=== PATIENT | male | born 1965 | race Two or more races ===

== ENCOUNTER 2024-10-16 13:30 | Emergency (ER) | payer MEDICAID, SELFPAY ==
[2024-10-16 13:31] VITALS: BMI 27.3
[2024-10-16 14:07] VITALS: BP 119/74; PULSE 115; RESP 24; TEMP 38.6; O2SAT 96
--- NOTE | 2024-10-16 15:22 | PD.EDURI ---
Upper Respiratory Inf. MAILE/DIPESH General Chief Complaint: Flu Like Symptoms Stated Complaint: FEVER/NAUSEA/NOT EATING X 1 WEEK Time Seen by Provider: 10/16/24 15:16 Arrival date/time: 10/16/24 13:30 Mode of arrival: ambulatory Limitations: no limitations TRAVISE / HPI Complaint: fever and cough Onset (ago): day(s) Duration: intermittent Severity: severe Severity scale (1-10): 4 Relieving factors: nothing Exacerbating factors: nothing Able to tolerate fluids by mouth: Yes Associated symptoms: denies other symptoms, fever, chills and headache Related Data Allergies Allergy/AdvReac Type Severity Reaction Status Date / Time No Known Allergies Allergy Verified 10/16/24 13:35 Review of Systems Constitutional Constitutional: Reports system reviewed and no additional complaints, except as documented Eyes Eyes: Reports system reviewed and no additional complaints, except as documented, Denies dry eyes, Denies exophthalmos and Reports floaters Cardiovascular Cardiovascular: Denies chest pain with activity and Denies claudication ED Exam General Limitations: Present no limitations General appearance: Present alert and in no apparent distress Head Head exam: Present atraumatic Eye Eye exam: Present normal appearance, PERRL and EOMI ENT ENT exam: Present normal exam, normal oropharynx and mucous membranes moist Neck Neck exam: Present normal inspection, full ROM and trachea midline Chest Chest inspection: Present normal inspection and symmetric chest wall rise Respiratory Respiratory exam: Present normal lung sounds bilaterally Cardiovascular Cardiovascular exam: Present regular rate, normal rhythm and normal heart sounds Abdominal Exam Abdominal exam: Present soft and normal bowel sounds Extremities Exam Extremities exam: Present normal inspection and full ROM Back Exam Back exam: Present normal inspection and full ROM Neurological Exam Neurological exam: Present alert, oriented X3 and CN II-XII intact Psychiatric Psychiatric exam: Present normal affect and normal mood Skin Skin exam: Present warm, dry, intact and normal color Course Course Course Narrative: CBC CMP flu and COVID swab Quality Measures none Orders NA Vital Signs Vital signs: Vital Signs Temperature 101.5 F H 10/16/24 14:07 Pulse Rate 115 H 10/16/24 14:07 Respiratory Rate 24 H 10/16/24 14:07 Blood Pressure 119/74 10/16/24 14:07 Pulse Oximetry (%) 96 10/16/24 14:07 Oxygen Delivery Method Room Air 10/16/24 14:07 Pulse ox on room air is 96% Upper Respiratory Infection Patient data External records reviewed:: Other (specify) (NA) Clinical information provided by:: none (NA) Social determinants that could affect healthcare access:: none (NA) Patient has the following chronic illnesses:: NA How is presenting disease/condition affected by chronic disease/condition?: no chronic disease Evaluation data The following diagnostics were reviewed and interpreted by me:: other (specify) (NA) Lab and/or radiology exams considered but not ordered:: NA Medications / Prescriptions Medications or Prescriptions considered but not ordered:: NA Consultations Consultation(s) initiated? (list below): No Diagnosis Upper Respiratory Differential Diagnosis: croup, otitis media, sinusitis, viral infection and bronchitis Discharge Plan Patient/Caregiver Discharge Instructions Print Language: [place]
[2024-10-16 17:19] LABS: Basophils # (Auto) 0.0 Thou/mm3 (0.0-0.2); Basophils % (Auto) 0 % (0-2.5); Eosinophils # (Auto) 0.0 Thou/mm3 (0.0-0.5); Eosinophils % (Auto) 0 % (0-10); Hematocrit 41.6 % (41.0-53.0); Hemoglobin 14.0 g/dL (13.5-16.0); Immature Granulocytes Auto 0.05 Thou/mm3 (0.00-0.00); Lymphocytes # (Auto) 3.0 Thou/mm3 (1.0-4.8); Lymphocytes % (Auto) 29 % (10-50); Mean Corpuscular HGB Conc 33.7 g/dl (31.0-37.0); Mean Corpuscular Hemoglobin 26.7 pg (25.0-35.0); Mean Corpuscular Volume 79 fL (80-100); Monocytes # (Auto) 0.8 Thou/mm3 (0.0-0.8); Monocytes % (Auto) 8 % (0-12); Neutrophils # (Auto) 6.6 Thou/mm3 (1.8-7.7); Neutrophils % (Auto) 62 % (37-80); Nucleated Red Blood Cell # 0.00 Thou/mm3 (0.00-0.00); Nucleated Red Blood Cell % 0 /100 WBC (0); Platelet Count 95 Thou/mm3 (140-440); RDW Standard Deviation 41.3 fL (35.1-43.9); Red Blood Count 5.25 Miln/mm3 (4.50-5.90); White Blood Count 10.5 Thou/mm3 (3.8-10.6)
[2024-10-16 17:40] LABS: INR 2.5 (0.9-1.3); Partial Thromboplastin Time 45.8 Seconds (22.0-36.0); Prothrombin Time 25.6 Seconds (9.0-12.2)
[2024-10-16 17:45] LABS: Alanine Aminotransferase 266 U/L (10-49); Albumin, Serum 3.9 gm/dL (3.5-5.0); Albumin/Globulin Ratio 1.1 (1.2-2.2); Alkaline Phosphatase 252 U/L (46-116); Anion Gap 10 (7-16); Aspartate Amino Transferase 187 U/L (0-34); BUN/Creatinine Ratio 7 Ratio (12-20); Bilirubin,Total 1.7 mg/dL (0.3-1.2); Blood Urea Nitrogen 8 mg/dL (9-23); Calcium 9.0 mg/dL (8.3-10.6); Calcium (Corrected) 9.1 mg/dL (8.5-10.1); Carbon Dioxide 25.9 mMol/L (20.0-31.0); Chloride 102 mMol/L (98-107); Creatinine (Component) 1.1 mg/dL (0.6-1.3); Estimated Creatinine Clearance 71.7 mL/min (>60); Globulin 3.4 gm/dL (2.3-3.5); Glucose 109 mg/dL (74-106); Osmolality,Calculated 274 (275-295); Potassium 4.6 mMol/L (3.4-5.1); Procalcitonin 0.99 ng/ml (0.0-0.49); Sodium 138 mMol/L (136-145); Total Protein 7.3 gm/dL (5.7-8.2); eGFR > 60 See Note
[2024-10-16 17:54] VITALS: TEMP 38.6
[2024-10-16] MEDS: ACETAMINOPHEN 500 MG TABLET 1000 MG PO (17:54)
[2024-10-16 18:13] LABS: Lactate (Lactic Acid) 2.9 mMol/L (0.4-2.0)
[2024-10-16 20:11] LABS: Reflex Lactate? Y
--- NOTE | 2024-10-16 20:42 | EDNOTE_ITS ---
Upper Respiratory Inf. RME/HPI General Chief Complaint: Flu Like Symptoms Stated Complaint: FEVER/NAUSEA/NOT EATING X 1 WEEK Time Seen by Provider: 10/16/24 15:16 Arrival date/time: 10/16/24 13:30 Mode of arrival: ambulatory RME / HPI RME / HPI Narrative: This section includes all my notes and documentations, including HPI, PE, and ED course. Gabriel Lockhart MD HPI: 59yo male with subjective fever, decreased appetite, headache, and fatigue for the last 8 days. Patient has not drank alcohol in 9 years. No abdominal pain, N/V/D, cough, UTI symptoms or any other associated symptoms. No other complaints reported. ROS: All negative except as documented in HPI. Physical Exam: General: Alert and oriented. No acute distress when remaining still. Eyes: Conjunctivae and lids clear. ENT: No nasal congestion. Neck: Supple. Heart: RRR. Lungs: No respiratory distress. Good air movement. No rhonchi, wheezing, rales. Abdomen: Soft and nontender. Normal bowel sounds. No distension. No rebound or guarding. Back: No CVA tenderness. Skin: Warm and dry. Neuro: Alert and oriented X 3. I reviewed all diagnostic test results. My review of the abdominal US report is cholelithiasis/cholecystitis. My review of the CT chest abdomen pelvis reports is cholelithiasis and hepatocellular disease. Blood tests remarkable for Lactic Acid 2.9, Total Bilirubin 1.7, AST 187, ALT 266, Alkaline Phosphatase 252, Procalcitonin 0.99. COVID/Influenza negative. At this point, diagnoses include cholcystitis, hepatitis, and fever. Treatment here included Tylenol and Augmentin and ibuprofen and Zofran. He felt better. Recommended MRCP tomorrow morning. Patient declined. Discussed potential risks, including worsening cholecystitis and even . Patient understood but we couldn't change his mind. He asked if he could return here tomorrow morning. Told him that it is his decision. Based on my best medical judgment, made decision no further evaluation or treatment indicated at this time. Patient understands and agrees to the discharge instructions customized and printed, see below. Discharge Instructions from Dr. Lockhart printed for you: 1. After evaluation, you have severe conditions. Including gallbladder with stones and infection and liver damage and fever. 2. Recommended staying here for MRCP tomorrow. But you declined and requested going home. 3. Tomorrow morning, return here to the ER and register again as ER patient. For MRCP. 4. Seek immediate medical care with worsening or with any concerns. Gabriel Lockhart MD Severity: severe Relieving factors: nothing Exacerbating factors: nothing Associated symptoms: denies other symptoms, fever, chills and headache Related Data Allergies Allergy/AdvReac Type Severity Reaction Status Date / Time No Known Allergies Allergy Verified 10/16/24 13:35 Review of Systems Review of Systems Systems Reviewed: All systems reviewed, normal except as documented ED Exam Narrative Physical exam: As noted in HPI. Course Quality Measures none Orders Category Date Time Status CT chest abdomen pelvis wo Stat Exams 10/16/24 20:50 Completed US abdomen limited Stat Exams 10/16/24 20:51 Completed Alcohol, Blood Medical Stat Lab 10/16/24 21:35 Completed Amylase Stat Lab 10/16/24 21:35 Completed Bilirubin,Direct Stat Lab 10/16/24 21:35 Completed Blood Culture (Lab) Stat Lab 10/16/24 16:50 Received CBC Stat Lab 10/16/24 16:50 Completed Comprehensive Metabolic Panel Stat Lab 10/16/24 16:50 Completed Drug Screen,Urine Stat Lab 10/16/24 22:07 Completed Free T4 (Free Thyroxine) Stat Lab 10/16/24 21:35 Completed Hepatitis Acute Panel Stat Lab 10/16/24 21:35 Completed Lactate (Lactic Acid) Stat Lab 10/16/24 16:50 Completed Lactic Acid, 3 HR Stat Lab 10/16/24 21:35 Completed Lipase Stat Lab 10/16/24 21:35 Completed Magnesium Stat Lab 10/16/24 21:35 Completed Partial Thromboplastin Time Stat Lab 10/16/24 16:50 Completed Procalcitonin Stat Lab 10/16/24 16:50 Completed Prothrombin Time with INR Stat Lab 10/16/24 16:50 Completed TSH [Thyroid Stimulating Hormone] Stat Lab 10/16/24 21:35 Completed UA, C/S IF [Urinalysis, C/S if Indicated] Stat Lab 10/16/24 22:07 Completed Acetaminophen Tab [Tylenol ES Tab] Med 10/16/24 17:09 Discontinued 1,000 mg PO X1 ONE Amoxicillin/Pot Clav 875 [Augmentin 875] Med 10/16/24 22:18 Discontinued 1 tab PO X1 ONE Ibuprofen Tab [Motrin Tab] Med 10/16/24 20:48 Discontinued 800 mg PO X1 ONE Ondansetron Odt [Zofran Odt] Med 10/16/24 20:49 Discontinued 4 mg PO X1 ONE EKG (RT) Stat RT 10/16/24 16:20 Stop Req Vital Signs Vital signs: Vital Signs Temperature 101.5 F H 10/16/24 14:07 Pulse Rate 115 H 10/16/24 14:07 Respiratory Rate 24 H 10/16/24 14:07 Blood Pressure 119/74 10/16/24 14:07 Pulse Oximetry (%) 96 10/16/24 14:07 Oxygen Delivery Method Room Air 10/16/24 14:07 Upper Respiratory Infection MDM Narrative MDM Narrative:: 59yo male with no significant past medical history presents to the ED for complaints of fever, decreased appetite, headache, and fatigue for the last 8 days. Patient has not drank alcohol in 9 years. No abdominal pain, N/V/D, cough, UTI symptoms or any other associated symptoms. No other complaints reported. Patient data External records reviewed:: [facility] [place] previous records (Per chart review, patient has no previous ED visits or admissions to this facility.) Clinical information provided by:: patient Social determinants that could affect healthcare access:: alcohol use Patient has the following chronic illnesses:: none How is presenting disease/condition affected by chronic disease/condition?: no chronic disease Evaluation data The following diagnostics were reviewed and interpreted by me:: lab results and radiology exam(s) Lab and/or radiology exams considered but not ordered:: none Interpretation Summary: I reviewed all diagnostic test results. My review of the abdominal US report is cholelithiasis/cholecystitis. My review of the CT chest abdomen pelvis reports is cholelithiasis and hepatocellular disease. Blood tests remarkable for Lactic Acid 2.9, Total Bilirubin 1.7, AST 187, ALT 266, Alkaline Phosphatase 252, Procalcitonin 0.99. COVID/Influenza negative. Medications / Prescriptions Medications or Prescriptions considered but not ordered:: none Medication administrations:: Medication Administration History Discontinued Medications Acetaminophen (Acetaminophen 500 Mg Tablet) 1,000 mg PO X1 ONE Stop: 10/16/24 17:10 Last Admin: 10/16/24 17:54 Dose: 1,000 mg Documented By: RADHA Amoxicillin/Clavulanate Potassium (Amoxicillin/Pot Clav 875 Tablet) 1 tab PO X1 ONE Stop: 10/16/24 22:19 Last Admin: 10/16/24 22:24 Dose: 1 tab Documented By: PREMA Ibuprofen (Ibuprofen Tab 400 Mg Tablet) 800 mg PO X1 ONE Stop: 10/16/24 20:49 Last Admin: 10/16/24 22:04 Dose: 800 mg Documented By: PREMA Ondansetron HCl (Ondansetron Odt 4 Mg Tabrap) 4 mg PO X1 ONE; Protocol Stop: 10/16/24 20:50 Last Admin: 10/16/24 22:04 Dose: 4 mg Documented By: PREMA Zofran, Ibuprofen, Tylenol, and Augmentin. Consultations Consultation(s) initiated? (list below): No Diagnosis Upper Respiratory Differential Diagnosis: upper respiratory infection, viral infection, bronchitis, influenza and other (COVID, cholecystitis, sepsis, UTI, pneumonia, choledocholithiasis) Most likely diagnosis given after review of the tests above:: Cholecystitis, Hepatitis, Fever Admission Indicated Admission indicated?: not indicated Explain why admission is indicated or not indicated:: Recommended MRCP tomorrow morning. Patient declined. Discussed potential risks, including worsening cholecystitis and even . Patient understood but we couldn't change his mind. He asked if he could return here tomorrow morning. Told him that it is his decision. Admission Request Was there a request for admission?: No Disposition Plan Disposition Plan: Discharge Discharge Attestation Discharge Attestation: The patient and all family members were given an opportunity to ask questions and understood the discharge instructions. Discharge instructions specifically effects, indications for sooner follow up or return to the emergency department, and the expected course of current diagnosis. Patient condition: Stable Discharge Plan Plan Patient Disposition: HOME (Self Care) Prescriptions/Referrals Referrals: No Primary/Family,Physician [Primary Care Provider] - In 1 week Problem List Clinical Impression: Cholecystitis, Hepatitis, Fever Patient/Caregiver Discharge Instructions Discharge Activity: activity as tolerated Education Materials: ED Cholecystitis, Confirmed, ED Cirrhosis, ED Fever Control (Adult) Additional Instructions: Discharge Instructions from Dr. Lockhart printed for you: 1. After evaluation, you have severe conditions. Including gallbladder with stones and infection and liver damage and fever. 2. Recommended staying here for MRCP tomorrow. But you declined and requested going home. 3. Tomorrow morning, return here to the ER and register again as ER patient. For MRCP. 4. Seek immediate medical care with worsening or with any concerns. Print Language: [place] Stand Alone Forms: [employer]ela Award Info., Patient Portal Info Letter
--- NOTE | 2024-10-16 20:50 | XR_ITS ---
Examination: CT chest, without intravenous contrast. CT abdomen, without intravenous contrast. CT pelvis, without intravenous contrast. 2-D sagittal and coronal reconstructions. 3-D reconstructions. Date and time of exam:October 16, 2024 2103 hours INDICATIONS: Shortness of breath fever abdominal pain elevated liver function tests on examination today CTDI vol (mgy) 7.35 DLP (MGycm)560 Technique: Multiple CT images, 3.0 mm slice thickness, obtained chest, abdomen, pelvis, with the high-resolution 64 slice scanner.. Sagittal and coronal 2-D reconstructions are obtained. 3-D reconstructions Low dose protocols were performed. One or more of the following dose reduction techniques were used; automated exposure control, adjustment of the mA and/or KV according to patient size, use of iterative reconstruction technique. Findings: No thoracic aortic aneurysm dilatation Pulmonary artery segments are not enlarged 3 mm pulmonary nodule left lower lobe image 160 Mild vascular congestion Minor atelectasis at the bases No lobar pneumonia 14 mm cyst 6 mm cyst left lobe of the liver Liver is irregular contour Small gallstones No splenic or pancreatic mass Normal adrenal glands No renal or ureteral calculi Fluid distended small bowel loops with wall thickening and inflammatory change about small bowel loops No pericecal inflammatory change No diverticulitis is Normal seminal vesicles No prostatomegaly Minimal thickening anteriorly of the bladder wall The osseous structures are intact IMPRESSION: 3 mm pulmonary nodule left lower lobe, with the study is baseline recommend 6 month follow-up CT chest without contrast Mild vascular congestion Minor atelectasis in the lower lung zones Suspect primary hepatocellular disease Cholelithiasis Fluid distended small bowel loops with wall thickening in the abdomen, consider enteritis such as Crohn's disease Mild urinary bladder wall thickening, cystitis included in the differential
--- NOTE | 2024-10-16 20:51 | XR_ITS ---
Examination: Abdomen sonogram, Limited Date and time of exam: October 16, 2024, 2109 hours INDICATIONS: Abdominal pain nausea and fever decreased appetite beginning one week ago, elevated liver function tests on laboratory examination today Technique: Real-time bañuelos scale transabdominal sonographic images of the upper abdomen obtained. Findings: 10 mm gallstone Gallbladder wall is 0.45 cm Common bile duct 0.3 cm Pancreatic head 2.1 cm Liver 15.7 cm 19 mm left lobe liver cyst, fatty infiltration Normal hepatopedal portal venous flow Patent IVC IMPRESSION: Cholelithiasis Abnormal thickening of the gallbladder wall, consider HIDA scan or MRCP follow-up to exclude cystitis
[2024-10-16 21:42] LABS: Lactic Acid, 3 HR 1.0 mMol/L (0.4-2.0)
[2024-10-16 22:04] VITALS: TEMP 37.1
[2024-10-16] MEDS: IBUPROFEN TAB 400 MG TABLET 800 MG PO (22:04)
[2024-10-16] MEDS: ONDANSETRON ODT 4 MG TABRAP PO (22:04)
[2024-10-16 22:05] VITALS: TEMP 37.1
[2024-10-16 22:11] LABS: Alcohol, Blood Medical < 3.0 mg/dL (0-10.0); Amylase 47 U/L (30-118); Bilirubin,Direct 0.9 mg/dL (0.0-0.3); Free T4 (Free Thyroxine) 1.06 ng/dL (0.89-1.76); Lipase 53 U/L (12-53); Magnesium 1.9 mg/dL (1.6-2.6); Thyroid Stimulating Hormone 2.14 uIU/mL (0.55-4.78)
[2024-10-16 22:13] LABS: Collection Type, Urine Clean Catch; Squamous Epithelial Cell,Urine 0 /hpf (0-5)
[2024-10-16 22:24] LABS: Amorphous Crystals,Urine Present (Absent); Bilirubin,Urine Negative (Negative); Blood,Urine Negative (Negative); Clarity,Urine Turbid (Clear/Hazy); Color,Urine Yellow (Lt Yel-Yel); Culture Indicated,Urine Not Indicated; Glucose, Urine Negative (Negative); Ketones,Urine Negative (Negative); Leukocyte Esterase,Urine Negative (Negative); Nitrite,Urine Negative (Negative); PH,Urine 6.0 (5.0-7.0); Protein,Urine Negative (Neg - Trace); RBC,Urine 2 /hpf (0-3); Specific Gravity,Urine 1.010 (1.001-1.035); Urobilinogen,Urine Negative mg/dL (0.0-1.0); WBC,Urine 2 /hpf (0-5)
[2024-10-16] MEDS: AMOXICILLIN/POT CLAV 875 TABLET 1 TAB PO (22:24)
[2024-10-16 22:26] LABS: Amphetamine/Methamp Scrn,U Negative (Negative); Barbiturate Screen,Urine Negative (Negative); Benzodiazepines Screen,Urine Negative (Negative); Benzoylecgonine Screen, Ur Negative (Negative); Fentanyl Screen,Urine Negative (Negative); Opiate Screen,Urine Negative (Negative); THC Screen,Urine Negative (Negative)
[2024-10-16 22:52] LABS: Hepatitis A Antibody IgM Non Reactive (Non React); Hepatitis B Core Antibody IgM Non Reactive (Non React); Hepatitis B Surface Antigen Non Reactive (Non React); Hepatitis C Antibody Non Reactive (Non React)
[2024-10-16 22:58] VITALS: BP 105/58; PULSE 61; RESP 16; TEMP 36.7; O2SAT 99
== END 2024-10-16 22:59 | disposition home or self-care (01) ==
PROVIDERS: Physician Assistant; Emergency Provider Emergency Medicine
DX: K80.10 Calculus of gallbladder with chronic cholecystitis without obstruction (principal); K75.9 Inflammatory liver disease, unspecified
CPT/HCPCS: 36415; 71250; 74176; 76705; 80053; 80074; 80307; 80320; 81001; 82150; 82248; 83605; 83690; 83735; 84145; 84439; 84443; 85025; 85610; 85730; 87040; 87086; 87400; 87811; 99284; Q0162; A9270; G0480